=== PATIENT | female | born 1955 | race Caucasian/White ===

== ENCOUNTER → 2019-11-27 13:58 | Outpatient (CLI) | payer OTHER ==
[~2019-11-27 13:58] MED LIST: BYDUREON P2 MG/0.65 SC; CELEXA40 MG PO; GLUCOPHAGE500 MG PO; LEVO-T50 MCG PO; LIPITOR40 MG PO; OMEPRAZOLE40 MG PO; PROAIR HFA8.5 G1 INH; SPIRIVA18 MCG INH; ZYRTEC10 MG PO
== END | disposition home or self-care (01) ==
LOC: D.NM 13:58
PROVIDERS: ATTEND Surgery
DX: R10.9 Unspecified abdominal pain (principal)

== ENCOUNTER 2019-11-27 14:21 | Inpatient (IN) | payer MEDICARE, OTHER ==
[~2019-11-27] VITALS: Ht 175.3 cm; Wt 88.5 kg
--- NOTE | ~2019-11-27 | OP ---
PATIENT NAME: NIXON PISANO MEDICAL RECORD: [id number] :55 LOCATION:D[id number] ADMISSION DATE:12/02/19 SURGEON: ISAAC BALDWIN MD DATE OF OPERATION: 12/02/2019 PREOPERATIVE DIAGNOSES: 1. Duodenal carcinoid tumor. 2. Diabetes mellitus. POSTOPERATIVE DIAGNOSES: 1. Duodenal carcinoid tumor. 2. Diabetes mellitus. PROCEDURE: Exploratory laparotomy with transduodenal excision of duodenal polyp. SURGEON: Isaac Baldwin MD REPORT OF PROCEDURE: The patient's abdomen was prepped and draped in sterile fashion. An upper midline incision was made and using electrocautery, we came through the subcutaneous tissues and fascia until we entered the abdominal cavity. The falciform ligament was found. We were able to ligate this proximally and distally with 3-0 silk ties. We then found the distal aspect of the stomach and followed it past the pylorus and we were able to eventually dissect out the patient's duodenum. We kocherized the duodenum. We were able to get underneath it with ease. I felt around and felt what appeared to be a thickening on the pancreatic side of the duodenum that correlated with the carcinoid tumor, which had been seen in the second portion of the duodenum on endoscopy and also the noted thickening that was found on the CT scan. I went ahead and opened up the antimesenteric aspect of the patient's duodenum. On the second portion, I was able to look into the lumen. As I looked around, I was able to find a small grouping of tissue, which I felt was the ampulla and I could actually see pancreatic fluid extending through this with manipulation of the pancreas. Just posterior to this, there was a firm mass that was present. I did not see any extravasation of any material through this with manipulation of the pancreas. Went ahead and grasped this grouping of tissue and using electrocautery, I came through this and I was able to send it off for permanent specimen. Permanent specimen came back as benign duodenal tissue. As I looked into the bed of this, I could see that I did not penetrate completely through the wall of the duodenum, but I could see a tubular structure present. As I dilated this tubular structure, there was spillage of bilious contents consistent with the distal aspect of the common bile duct. I went ahead and irrigated this portion of the duodenum and then sewed the edges of the mucosa to the edges of the common bile duct using multiple interrupted 5-0 PDS. I then closed the remainder of the duodenal biopsy site using a running 3-0 Vicryl. There appear to be good approximation of the tissue. I then inspected the area more thoroughly. I was able to find another clump of tissue on the mid portion of the second portion of the duodenum. I used sharp dissection to take a small piece of this and sent it off and that came back as hyperplastic polyp with no evidence of carcinoid. I then extended my kocherization of the duodenum for the distal third and portion of the duodenum and to the ligament of Treitz. As I did this, I was able find a very firm mass of tissue that was on the edge of the duodenum at the junction of the ligament of Treitz. As I elevated this up, I used electrocautery to come around this mass and eventually took off this section of the tissue, which was full thickness, sent this off for evaluation OPERATIVE REPORT [id number] NIXON PISANO and came back as aberrant benign pancreatic tissue. I cleaned the wound edges and performed a 2-layer closure transversely using a running layer of 3-0 Vicryl and an outer layer of multiple Lemberted 3-0 silks. This did not stenose the tissue at all. I then inspected the duodenum one last time with care taken to try and make sure I went up towards the pylorus. I was able to actually eviscerate the first portion of the duodenum through my wound, kind of like an intussusception and I was able to visualize the tissues and there was no sign of a mass or lesion present. I eventually decided that I would not be able to find this mass and maybe it was nearly completely removed at the time of its initial biopsy. I irrigated out the wound and then closed the transduodenal opening in 2 layers with an inner layer of running 3-0 Vicryl and outer layer of multiple Lemberted 3-0 silks. There was some tightening of the second portion of the duodenum, but there was a mucosal opening present. I then placed a 19 round Tunde drain in through the right lower quadrant and rest of this on the lateral aspect of the second portion of the duodenum and sutured it into place with a 3-0 nylon. We irrigated out the wound with normal saline. I inspected the liver and splenic bed and also inspected the stomach. I did not see any evidence of any metastatic disease. At this point, we closed the fascia using running #1 loop PDS times 2. The subcutaneous tissues were reapproximated with interrupted 3-0 Vicryl and the skin was closed with usama. COMPLICATIONS: None. CONDITION: Stable. ANESTHESIA: General endotracheal. BLOOD LOSS: 100 mL. TRANSINT:[id number] Voice Confirmation ID: [id number] DOCUMENT ID: [id number] ISAAC BALDWIN MD CC: JOSE LUIS GONZALEZ MD, ALEX WATERS MD and PARDEEP CABRAL [id number] DICTATION DATE: 12/02/19 1628 HOSE MENDER: 12/03/19 0049 ADM IN [facility] [address] [id number]
[2019-12-01] MEDS ORDERED: LIPITOR40 MG PO (10:32)
[2019-12-01] MEDS ORDERED: GLUCOPHAGE500 MG PO (10:32)
[2019-12-01] MEDS ORDERED: SPIRIVA18 MCG INH (10:33)
[2019-12-01] MEDS ORDERED: OMEPRAZOLE40 MG PO (10:33)
[2019-12-01] MEDS ORDERED: CELEXA40 MG PO (10:34)
[2019-12-01] MEDS ORDERED: BYDUREON P2 MG/0.65 SC (10:34)
[2019-12-01] MEDS ORDERED: PROAIR HFA8.5 G1 INH (10:35)
[2019-12-01] MEDS ORDERED: ZYRTEC10 MG PO (10:36)
[2019-12-01] MEDS ORDERED: LEVO-T50 MCG PO (10:54)
[2019-12-01 11:29] LABS: BASOPHILS 0.4 % (0-2); EOSINOPHILS 3.9 % (0-7); HEMATOCRIT 39.5 % (36.0-48.0); HEMOGLOBIN 13.1 g/dL (12-16); IMMATURE GRANULOCYTES 0.3 % (0-5); LYMPHOCYTES 24.5 % (15-50); MCH 29.8 pg (26.0-34.0); MCHC 33.2 g/dL (31.0-37.0); MEAN PLATELET VOLUME 9.3 fL (7.4-10.4); MONOCYTES 8.2 % (2-11); NEUTROPHILS 62.7 % (40-80); PLATELET COUNT 261 10x3/uL (130-400); RBC 4.39 10x6/uL (4.00-5.40); RDW 12.5 % (11.5-14.5); WBC 7.5 10x3/uL (4.8-10.8)
[2019-12-01 11:35] LABS: ANION GAP 13.7 mmol/L (8-16); CALCIUM 8.3 mg/dL (8.5-10.1); CARBON DIOXIDE 24.6 mmol/L (21.0-32.0); CREATININE - SERUM 1.1 mg/dL (0.6-1.3); POTASSIUM - SERUM 4.3 mmol/L (3.5-5.1)
[2019-12-01 11:38] LABS: APTT 30.1 SECONDS (22.8-39.4); INR 0.93 (0.85-1.17); PROTIME 12.4 SECONDS (11.6-15.0)
[2019-12-02] VITALS (12 sets, daily range): BP systolic 97–139; BP diastolic 47–66; BMI 28.2; BMI 28.8
[2019-12-02] MEDS ORDERED: BYDUREON P2 MG/0.65 SC (09:08)
[2019-12-02] MEDS ORDERED: BAYER CHEWABLE81 MG PO (09:10)
[2019-12-02] MEDS ORDERED: SUPER B COMPLE1 EAC1 PO (09:11)
[2019-12-02] MEDS ORDERED: VITAMIN D3 PO (09:13)
[2019-12-02] MEDS ORDERED: CALCIUM PO (09:14)
[2019-12-02] MEDS ORDERED: CENTRUM SILVER1 EAC3 PO (09:14)
[2019-12-02] MEDS ORDERED: L-LYSINE500 M1 PO (09:14)
[2019-12-02] MEDS ORDERED: ZINC PO (09:14)
[2019-12-02] MEDS ORDERED: [UNRECOGNIZED DRUG - OTHER] PO (09:14)
[2019-12-02] MEDS ORDERED: OSTEO BI-FLEX1 EAC1 PO (09:15)
--- NOTE | 2019-12-02 17:30 | NUR ---
PT ARRIVES TO ROOM VIA BED ESCORTED BY RECOVERY ROOM STAFF AND FAMILY MEMBER. PT IS AAO X 4 UPON ARRIVAL AND ANSWERS ALL QUESTIONS APPROPRIATELY. ANDERSON CATHETER NOTED AND DRAINING WITHOUT DIFFICULTY. STAT LOCK IN PLACE TO RIGHT THIGH. HUNG DRAIN NOTED TO RIGHT UPPER/LOWER QUADRANT. BULB IS COMPRESSED. DRESSING IS CDI. SCANT AMOUNT OF RED DRAINAGE NOTED TO BULB. MIDLINE ABDOMINAL INCISION IS NOTED AND DRESSING IS CDI. PIV TO LEFT FA IS INFUSING WITHOUT DIFFICULTY PER ORDER. NG TUBE TO RIGHT NARE IS SET TO LIS. DARK BROWN FLUID NOTED TO TUBING AND COLLECTION CHAMBER. PT DENIES PRESENCE OF N/V AT THIS TIME. VSS SEE FLOWSHEET. SCDS ARE ON BLE. BED IS IN THE LOWEST POSITION. CALL LIGHT AND BEDSIDE TABLE ARE WITHINR EACH. SIDE RAILS X 2. PT AND PT FAMILY DENY FURTHER NEEDS AT THIS TIME. WILL CONT TO MONITOR.
--- NOTE | 2019-12-02 19:40 | NUR ---
LYING IN BED. HOB ELEVATED. DAUGHTER AT BEDSIDE. DROWSY. ORIENTED X4. FORGETFUL. V/S STABLE. NGT NOTED TO RT NARE TO LIS WITH DARK BROWN FLUID IN CANISTER. ANDERSON CATH PATENT AND DRAINING CLEAR YELLOW URINE. HUNG DRAIN NOTED TO RT ABD WITH BLOODY FLUID IN BULB. MIDLINE INCISION DRSG IS C/D/I. HUNG DRAIN DRSG IS C/D/I. SCDS IN USE BILAT. O2 @ 3L/NC. BED ALARM ON. NS @ 125 ML/HR INFUSING IN LT FOREARM. DENIES PAIN. FINE RED RASH NOTED TO BILAT FEET. SR ELEVATED X2. CL IN REACH.
[2019-12-03] VITALS (7 sets, daily range): BP systolic 119–153; BP diastolic 57–75; Ht 175.3 cm; Wt 88.5 kg
--- NOTE | 2019-12-03 03:17 | NUR ---
HAS RESTED WELL SO FAR THIS SHIFT. DROWSY BUT EASILY AWAKENS. V/S STABLE. NO DISTRESS. DENIES PAIN. RESP SHALLOW, NONLABORED. SR ELEVATED X2. CL IN REACH.
[2019-12-03 06:14] LABS: BASOPHILS 0 % (0-2); EOSINOPHILS 0 % (0-7); HEMATOCRIT 37.7 % (36.0-48.0); HEMOGLOBIN 12.2 g/dL (12-16); IMMATURE GRANULOCYTES 0.2 % (0-5); LYMPHOCYTES 6.1 % (15-50); MCH 29.5 pg (26.0-34.0); MCHC 32.4 g/dL (31.0-37.0); MCV 91.1 fL (80.0-100.0); MEAN PLATELET VOLUME 9.7 fL (7.4-10.4); MONOCYTES 6.6 % (2-11); NEUTROPHILS 87.1 % (40-80); PLATELET COUNT 237 10x3/uL (130-400); RBC 4.14 10x6/uL (4.00-5.40); RDW 13.2 % (11.5-14.5)
[2019-12-03 06:46] LABS: WBC 12.4 10x3/uL (4.8-10.8)
[2019-12-03 07:04] LABS: CALCIUM 7.1 mg/dL (8.5-10.1); CARBON DIOXIDE 22.2 mmol/L (21.0-32.0); CREATININE - SERUM 0.9 mg/dL (0.6-1.3); POTASSIUM - SERUM 4.2 mmol/L (3.5-5.1)
--- NOTE | 2019-12-03 07:15 | NUR ---
REC'D IN WALKING ROUNDS AWAKE AND ALERT. RESP EVEN AND UNLABORED WITH NO DISTRESS NOTED. HAS NG TUBE NOTED TO RIGHT NARE TO LIWS. CAN EXPRESS NEEDS AND WANTS. NO C/O NOTED OR VOICED AT THIS TIME. ASSESMENT COMPLETED. C/L IN REACH AT BEDSIDE.
--- NOTE | 2019-12-03 11:30 | NUR ---
ANDERSON CATH DC AT THIS TIME WITH 600 CC NOTED TO COLLECTION DEVICE. C/L IN REACH AT BEDSIDE.
--- NOTE | 2019-12-03 12:48 | NUR ---
I have reviewed this patient and I concur with the Shift Assessment completed by the Licensed Practical Nurse today this shift.
--- NOTE | 2019-12-04 01:38 | NUR ---
PT CALLED ME TO ROOM TO RETAPE NG TUBE. UPON EXAM OF NG TUBE I NOTICED THE NG HAS COME OUT SOME. I AUSCULTATED FOR PLACEMENT NO SOUNDS NOTED. ADVANCED NG TUBE TO THE TESHA ON TUBING. POSITIVE SOUND WHEN AUSCULTATED AGAIN. PUT IN ORDER FOR KUB TO CONFIRM PLACEMENT. WILL CONTINUE TO MONTIOR.
[2019-12-04 04:00] VITALS: BP 159/71
--- NOTE | 2019-12-04 05:18 | NUR ---
I have reviewed this patient and I concur with the Shift Assessment completed by the Licensed Practical Nurse today this shift.
[2019-12-04 07:00] LABS: BASOPHILS 0.2 % (0-2); EOSINOPHILS 0.3 % (0-7); HEMATOCRIT 34.4 % (36.0-48.0); HEMOGLOBIN 11.1 g/dL (12-16); IMMATURE GRANULOCYTES 0.2 % (0-5); LYMPHOCYTES 10.2 % (15-50); MCH 29.4 pg (26.0-34.0); MCHC 32.3 g/dL (31.0-37.0); MCV 91.2 fL (80.0-100.0); MEAN PLATELET VOLUME 9.8 fL (7.4-10.4); MONOCYTES 6.4 % (2-11); NEUTROPHILS 82.7 % (40-80); PLATELET COUNT 242 10x3/uL (130-400); RBC 3.77 10x6/uL (4.00-5.40); RDW 13.3 % (11.5-14.5); WBC 12.6 10x3/uL (4.8-10.8)
[2019-12-04 07:06] LABS: CARBON DIOXIDE 22.2 mmol/L (21.0-32.0); CHLORIDE - SERUM 106 mmol/L (98-107); CREATININE - SERUM 0.8 mg/dL (0.6-1.3); SODIUM 136 mmol/L (136-145); UREA NITROGEN 9 mg/dL (7-18); eGFR NON AFRICAN AMERICAN 76 mL/min (90-120)
[2019-12-04 07:08] LABS: CALC OSMOLALITY 272 mosm/kg (275-300); GLUCOSE 132 mg/dL (74-106); POTASSIUM - SERUM 3.4 mmol/L (3.5-5.1)
[2019-12-04 09:48] VITALS: BP 163/70
[2019-12-04 12:58] VITALS: BP 151/63
--- NOTE | 2019-12-04 14:31 | NUR ---
I have reviewed this patient and I concur with the Shift Assessment completed by the Licensed Practical Nurse today this shift.
[2019-12-04 17:23] VITALS: BP 174/87
[2019-12-04 20:00] VITALS: BP 183/94
[2019-12-05] VITALS: BP 176/82
[2019-12-05 04:00] VITALS: BP 152/81
--- NOTE | 2019-12-05 04:12 | NUR ---
I have reviewed this patient and I concur with the Shift Assessment completed by the Licensed Practical Nurse today this shift.
[2019-12-05 05:34] LABS: BASOPHILS 0.3 % (0-2); EOSINOPHILS 1.8 % (0-7); HEMATOCRIT 36.9 % (36.0-48.0); HEMOGLOBIN 12.5 g/dL (12-16); IMMATURE GRANULOCYTES 0.3 % (0-5); LYMPHOCYTES 15.7 % (15-50); MCH 29.7 pg (26.0-34.0); MCHC 33.9 g/dL (31.0-37.0); MEAN PLATELET VOLUME 9.4 fL (7.4-10.4); MONOCYTES 7.4 % (2-11); NEUTROPHILS 74.5 % (40-80); PLATELET COUNT 272 10x3/uL (130-400); RBC 4.21 10x6/uL (4.00-5.40); RDW 12.8 % (11.5-14.5); WBC 11.2 10x3/uL (4.8-10.8)
[2019-12-05 05:43] LABS: MCV 87.6 fL (80.0-100.0)
[2019-12-05 05:47] LABS: CALC OSMOLALITY 270 mosm/kg (275-300); CALCIUM 8.1 mg/dL (8.5-10.1); CARBON DIOXIDE 23.6 mmol/L (21.0-32.0); CHLORIDE - SERUM 102 mmol/L (98-107); CREATININE - SERUM 0.7 mg/dL (0.6-1.3); GLUCOSE 134 mg/dL (74-106); POTASSIUM - SERUM 3.3 mmol/L (3.5-5.1); SODIUM 135 mmol/L (136-145); UREA NITROGEN 11 mg/dL (7-18); eGFR NON AFRICAN AMERICAN 89 mL/min (90-120)
[2019-12-05 09:17] VITALS: BP 174/89
--- NOTE | 2019-12-05 10:00 | NUR ---
ASSESSMENT PER FLOW SHEET. PATIENT IS WITHOUT DISTRESS.CALL LIGHT IN REACH
[2019-12-05 12:53] VITALS: BP 180/92
--- NOTE | 2019-12-05 13:02 | NUR ---
PATEL DC'D ORDERED.
--- NOTE | 2019-12-05 13:38 | NUR ---
Nutrition follow-up: Visited with pt during breakfast meal rounds. Pt ready for NGT to out. NPO Reviewed chart; pt now with NGT out and Clear liquids diet started Labs reviewed WT: 195# RDN following.
--- NOTE | 2019-12-05 15:24 | NUR ---
TOLERATING CLD WITHOUT NAUSEA.
[2019-12-05 17:11] VITALS: BP 166/87
--- NOTE | 2019-12-05 18:25 | NUR ---
TOLERATING FLD. PATIENT IS WITHOUT NEEDS. DENIES PAIN.BM THIS AFTERNOON.
[2019-12-05 20:00] VITALS: BP 160/80
--- NOTE | 2019-12-06 00:24 | NUR ---
I have reviewed this patient and I concur with the Shift Assessment completed by the Licensed Practical Nurse today this shift.
[2019-12-06 04:00] VITALS: BP 141/79
[2019-12-06 07:15] LABS: BASOPHILS 0.2 % (0-2); EOSINOPHILS 4.9 % (0-7); HEMATOCRIT 37.3 % (36.0-48.0); HEMOGLOBIN 12.3 g/dL (12-16); IMMATURE GRANULOCYTES 0.2 % (0-5); LYMPHOCYTES 16.7 % (15-50); MEAN PLATELET VOLUME 9.2 fL (7.4-10.4); MONOCYTES 8.1 % (2-11); NEUTROPHILS 69.9 % (40-80); PLATELET COUNT 285 10x3/uL (130-400); RBC 4.24 10x6/uL (4.00-5.40); RDW 12.8 % (11.5-14.5); WBC 8.3 10x3/uL (4.8-10.8)
[2019-12-06 08:58] LABS: CALC OSMOLALITY 269 mosm/kg (275-300); CALCIUM 7.9 mg/dL (8.5-10.1); CARBON DIOXIDE 22.9 mmol/L (21.0-32.0); CHLORIDE - SERUM 100 mmol/L (98-107); CREATININE - SERUM 0.8 mg/dL (0.6-1.3); GLUCOSE 144 mg/dL (74-106); POTASSIUM - SERUM 3.4 mmol/L (3.5-5.1); SODIUM 133 mmol/L (136-145); eGFR NON AFRICAN AMERICAN 76 mL/min (90-120)
[2019-12-06 09:04] LABS: UREA NITROGEN 15 mg/dL (7-18)
[2019-12-06 09:30] VITALS: BP 162/75
--- NOTE | 2019-12-06 10:44 | NUR ---
I have reviewed this patient and I concur with the Shift Assessment completed by the Licensed Practical Nurse today this shift.
[2019-12-06 13:23] VITALS: BP 160/78
[2019-12-06] MEDS ORDERED: HYDROCODON-ACE1 EA10 PO (13:26)
[2019-12-06] MEDS ORDERED: REGLAN10 MG PO (13:27)
--- NOTE | 2019-12-06 15:25 | NUR ---
DISCHARGED PATIENT HOME WITH FAMILY VIA WHEELCHAIR. DISCONTINUED IV, CATHETER TIP INTACT. DEMONSTRATED HOW TO EMPTY AND COMPRESS HUNG DRAIN. PATIENT DEMONSTRATED HOW TO PERFORM ACCURATELY. WENT OVER DISCHARGE INSTRUCTIONS WITH PATIENT AND FAMILY, VERBALIZED UNDERSTANDING. DENIES ANYTHING FURTHER.
== END 2019-12-06 15:39 | disposition home or self-care (01) | DRG 328 ==
LOC: D.MS 12-02 08:12 → D.SDCHOLD 12-02 08:12 → D.MS 12-02 16:26
PROVIDERS: Anesthesiology; ADMIT Surgery; ATTEND Surgery
PROC: 0DB90ZZ Excision of Duodenum, Open Approach (ICD-10-PCS; principal; 2019-12-02 10:15)
DX: D3A.010 Benign carcinoid tumor of the duodenum (principal); E11.9 Type 2 diabetes mellitus without complications; E78.00 Pure hypercholesterolemia, unspecified; J44.9 Chronic obstructive pulmonary disease, unspecified

== ENCOUNTER 2020-06-24 05:28 | Day surgery (SDC) | payer MEDICARE, OTHER ==
[~2020-06-24] VITALS: Ht 175.3 cm; Wt 88.6 kg
--- NOTE | ~2020-06-24 | OP ---
PATIENT NAME: NIXON PISANO MEDICAL RECORD: [id number] :55 LOCATION:D.OPS ADMISSION DATE: SURGEON: DIANA BALDWIN MD DATE OF OPERATION: 06/24/2020 PREOPERATIVE DIAGNOSES: 1. Duodenal carcinoid. 2. Diabetes mellitus. 3. Osteoporosis. POSTOPERATIVE DIAGNOSES: 1. Duodenal carcinoid. 2. Diabetes mellitus. 3. Osteoporosis. PROCEDURE: EGD with biopsy. SURGEON: Diana Baldwin MD DESCRIPTION OF PROCEDURE: An Olympus endoscope was advanced through the mouth and esophagus. We easily passed into the stomach and out through the pylorus. We were able to get to the third portion of the duodenum. I saw no ulcerations or strictures. The patient did have a very small lesion that was on the first portion of the duodenum right as you pass through the pylorus. This lesion was about 0.5 cm in size, was mildly raised and rounded. A biopsy was taken of this mass and it nearly obliterated the mass with the biopsy. We then pulled back the scope and inspected the antrum of the stomach. There are no masses, lesions or ulcerations in the antrum of the stomach near the pylorus. A random biopsy was taken of the antrum of the stomach. Retroflex view showed that the patient had a moderate-sized hiatal hernia. The body and fundus of the stomach had some enlarged lesions present, most consistent with hyperplastic nodules. As we pulled back the scope, we could see that the GE junction rested at 35 cm at the teeth. The GE junction had no evidence of any ulcerations or inflammation. We then removed the insufflation and slowly pulled out the scope. COMPLICATIONS: None. CONDITION: Stable. ANESTHESIA: TIVA. BLOOD LOSS: Minimal. TRANSINT:[id number] Voice Confirmation ID: [id number] DOCUMENT ID: [id number] DIANA BALDWIN MD CC: JOSE LUIS GONZALEZ MD [id number] DICTATION DATE: 06/24/20815 HOLTER SCANNING TECHNICIAN: 06/24/20928 [facility] 06/24/[id number] [place] [address]
[~2020-06-24 05:28] MED LIST changes: +BAYER CHEWABLE81 MG PO; +CALCIUM PO; +CENTRUM SILVER1 EAC3 PO; +HYDROCODON-ACE1 EA10 PO; +L-LYSINE500 M1 PO; +OSTEO BI-FLEX1 EAC1 PO; +REGLAN10 MG PO; +SUPER B COMPLE1 EAC1 PO; +VITAMIN D3 PO; +ZINC PO; +[UNRECOGNIZED DRUG - OTHER] PO
[2020-06-24 06:00] LABS: BASOPHILS 0.5 % (0-2); EOSINOPHILS 5.8 % (0-7); HEMATOCRIT 37.9 % (36.0-48.0); HEMOGLOBIN 12.6 g/dL (12-16); IMMATURE GRANULOCYTES 0.2 % (0-5); LYMPHOCYTES 32.4 % (15-50); MCH 29.4 pg (26.0-34.0); MCHC 33.2 g/dL (31.0-37.0); MCV 88.3 fL (80.0-100.0); MEAN PLATELET VOLUME 9.3 fL (7.4-10.4); MONOCYTES 8.7 % (2-11); NEUTROPHIL ABS# 3.07 10x3/uL (1.56-6.13); NEUTROPHILS 52.4 % (40-80); PLATELET COUNT 244 10x3/uL (130-400); RBC 4.29 10x6/uL (4.00-5.40); RDW 13.1 % (11.5-14.5); WBC 5.9 10x3/uL (4.8-10.8)
[2020-06-24 06:01] LABS: APTT 24.4 SECONDS (22.8-39.4); INR 1.02 (0.85-1.17); PROTIME 12.4 SECONDS (11.6-15.0)
[2020-06-24 06:08] LABS: ANION GAP 12.1 mmol/L (8-16); CARBON DIOXIDE 24.2 mmol/L (21.0-32.0); POTASSIUM - SERUM 4.3 mmol/L (3.5-5.1)
[2020-06-24 06:35] VITALS: BP 107/66; Ht 175.3 cm; Wt 88.6 kg
--- NOTE | 2020-06-24 06:53 | NUR ---
IV STARTED WITH 22G ANGIOCATH IN RIGHT HAND, TOLERATED WELL
--- NOTE | 2020-06-24 08:40 | NUR ---
DISCHARGE INSTRUCTIONS REVIEWED WITH PATIENT AND SPOUSE. COPY PROVIDED ALONG WITH LIST OF NSAIDS TO AVOID AND HIATAL HERNIA INFORMATION. BOTH VOICED UNDERSTANDING.
--- NOTE | 2020-06-24 08:52 | NUR ---
IV DC'D WITH CATH TIP INTACT. PT UP TO GET DRESSED FOR DISCHARGE HOME.
--- NOTE | 2020-06-24 09:00 | NUR ---
DISCHARGED VIA W/C, ACCOMPANIED BY SPOUSE AND CASS, TO POV WITH SPOUSE DRIVING. ALL BELONGINGS AND DC PACKET WITH PT.
== END 2020-06-24 09:00 | disposition home or self-care (01) ==
LOC: D.OPS 05:28
PROVIDERS: Anesthesiology; ATTEND Surgery
DX: D3A.010 Benign carcinoid tumor of the duodenum (principal); E11.9 Type 2 diabetes mellitus without complications; M81.0 Age-related osteoporosis without current pathological fracture